=== PATIENT | male | born 1955 | race Caucasian/White ===

== ENCOUNTER → 2022-03-09 07:00 | Outpatient (CLI) | payer OTHER, SELFPAY ==
[2022-03-09 19:32] LABS: HIV 1 & 2 Ab/Ag 4th Gen Combo NEGATIVE (NEGATIVE)
== END ==
PROVIDERS: PCP Pediatrics; Referring Provider Pediatrics; Visit Provider Pediatrics
DX: A64 Unspecified sexually transmitted disease (principal)
CPT/HCPCS: 36415; 87389

== ENCOUNTER → 2022-04-26 07:11 | Outpatient (CLI) | payer OTHER, SELFPAY ==
--- NOTE | 2022-04-26 07:13 | DI.RAD.S_ITS ---
PROCEDURE: XR CHEST 2V INDICATIONS: left side chest pain TECHNIQUE: 2 views of the chest were acquired. COMPARISON: None. FINDINGS: Surgical changes and devices: None. Lungs and pleura: Lungs are clear. No pleural effusions or pneumothorax. Mediastinum: Mediastinal contours are normal. Heart size is normal. Bones and chest wall: No suspicious bony abnormalities. Soft tissues appear unremarkable. IMPRESSION: No acute cardiopulmonary findings. Dictated by: Gabby Coleman M.D. on 04/26/2022 at 8:34 Approved by: Gabby Coleman M.D. on 04/26/2022 at 8:36
[2022-04-26 08:36] LABS: Add Manual Diff / Slide Review NO; Basophils Absolute Auto 0 /uL (0-100); Basophils Percent Auto 0.5 % (0-2); Eosinophils Absolute Auto 100 /uL (0-450); Eosinophils Percent Auto 2.1 % (2-4); Hematocrit 45.6 % (41-53); Lymphocytes Absolute Auto 1700 /uL (1100-4500); Lymphocytes Percent Auto 32.1 % (25-40); Mean Corpuscular Hemoglobin 32.7 PG (26-34); Mean Corpuscular Volume 93.3 fL (80-100); Monocytes Absolute Auto 600 /uL (0-900); Monocytes Percent Auto 11.3 % (3-14); Neutrophils Absolute Auto 2900 /uL (1500-7000); Platelet Count 200 X10^3/uL (150-400); Red Blood Cell Count 4.89 X10^6/uL (4.5-5.9); Red Cell Distribution Width 12.5 % (11.6-14.8); White Blood Cell Count 5.4 X10^3/uL (4.5-11.0)
[2022-04-26 08:40] LABS: Ur Creatinine Normal (Normal); Ur Specific Gravity Normal (Normal); Urine pH Normal (Normal)
[2022-04-26 08:41] LABS: UR Morphine/Opiate cutoff 300 Negative (Negative); Urine Amphetamines Negative (Negative); Urine Barbiturates Negative (Negative); Urine Benzodiazepines Negative (Negative); Urine Cocaine Negative (Negative); Urine MDMA Negative (Negative); Urine Methadone Negative (Negative); Urine Methamphetamines Negative (Negative); Urine Oxycodone Negative (Negative); Urine Phencyclidine Negative (Negative); Urine Tetrahydrocannabinol Negative (Negative); Urine Tricyclic Antidepressant Negative (Negative)
[2022-04-26 09:23] LABS: Alanine Aminotransferase 25 IU/L (<50); Albumin 4.3 g/dL (3.5-5.0); Albumin Globulin Ratio 1.6 (1.0-2.8); Alkaline Phosphatase 54 U/L (38-126); Aspartate Aminotransferase 33 IU/L (17-59); BUN Creatinine Ratio 19.1 (6-22); Bilirubin Total 1.2 mg/dL (0.2-1.3); Blood Urea Nitrogen 17 mg/dL (9-20); Calcium 8.6 mg/dL (8.4-10.2); Carbon Dioxide 27 mmol/L (22-32); Chloride 104 mmol/L (98-107); Cholesterol 194 mg/dL (140-199); Estimated Glomerular Filt Rate > 60 mL/min (>60); Globulin 2.7 g/dL (1.7-4.1); Glucose 96 mg/dL (80-110); HDL Cholesterol 43 mg/dL (40-60); HEMOLYSIS < 15 (0-50); LDL Cholesterol Calculated 131 mg/dL (<100); Potassium 4.6 mmol/L (3.4-5.1); Sodium 139 mmol/L (137-145); Triglycerides 99 mg/dL (35-150)
[2022-04-26 09:52] LABS: TSH w/ Reflex to FT4 1.15 uIU/mL (0.47-4.68)
[2022-04-26 09:53] LABS: Prostate Specific Antigen Scrn 0.228 ng/mL (0.1-4.0)
[2022-04-26 10:01] LABS: Hep C Virus Ab w/Reflex Quant NEGATIVE s/c (NEGATIVE)
[2022-04-26 10:06] LABS: Appearance Urine UA CLEAR; Bilirubin Urine UA NEGATIVE (NEGATIVE); Color Urine UA YELLOW; Glucose Urine UA NEGATIVE (Negative); Ketones Urine UA NEGATIVE (NEGATIVE); Leukocyte Esterase Urine UA NEGATIVE (NEGATIVE); Nitrite Urine UA NEGATIVE (Negative); Occult Blood Urine UA TRACE-INTACT (Negative); Protein Urine UA NEGATIVE (Negative); Specific Gravity Urine UA <=1.005 (1.000-1.035); Urobilinogen Urine UA 0.2 E.U./dL (0.2)
[2022-04-26 10:07] LABS: Bacteria Urine Occasional (0-1); Culture Indicated Urine Cult Not Indicated; RBC Urine 0-1/HPF (0-5/HPF); WBC Urine 0-1/HPF (0-5/HPF)
[2022-04-27 13:54] LABS: Interpretation Negative (Negative)
== END ==
PROVIDERS: PCP Pediatrics; Referring Provider Pediatrics; Visit Provider Pediatrics
DX: Z02.83 Encounter for blood-alcohol and blood-drug test (principal); R07.9 Chest pain, unspecified; Z12.5 Encounter for screening for malignant neoplasm of prostate; E03.9 Hypothyroidism, unspecified; K21.9 Gastro-esophageal reflux disease without esophagitis; N40.0 Benign prostatic hyperplasia without lower urinary tract symptoms; R30.0 Dysuria; Z13.220 Encounter for screening for lipoid disorders; Z13.228 Encounter for screening for other metabolic disorders; Z76.89 Persons encountering health services in other specified circumstances
CPT/HCPCS: 36415; 71046; 80053; 80061; 80305; 81001; 83013; 84443; 85025; 86803; G0103

== ENCOUNTER → 2022-05-12 11:50 | Outpatient (CLI) | payer OTHER, SELFPAY ==
--- NOTE | 2022-05-12 11:52 | DI.RAD.S_ITS ---
PROCEDURE: XR KNEE LT 3V INDICATIONS: left knee pain TECHNIQUE: 3 views of the knee were acquired. COMPARISON: None. FINDINGS: Bones: No fractures or dislocations. Mild tricompartmental osteoarthritis is seen with joint space narrowing, subchondral sclerosis and small marginal osteophyte formation more prominent in patellofemoral compartment. No patellar subluxation. No suspicious bony lesions. Soft tissues: No significant joint effusion. No suspicious soft tissue calcifications. IMPRESSION: Mild tricompartmental osteoarthritis. No fracture or dislocation. No significant joint effusion. Dictated by: Lam Baer M.D. on 05/12/2022 at 14:16 Approved by: Lam Baer M.D. on 05/12/2022 at 14:21
--- NOTE | 2022-05-12 11:52 | DI.RAD.S_ITS ---
PROCEDURE: XR KNEE RT 3V INDICATIONS: right knee pain TECHNIQUE: 3 views of the knee were acquired. COMPARISON: None. FINDINGS: Bones: No fractures or dislocations. Mild tricompartmental osteoarthritis is seen with joint space narrowing and subchondral sclerosis. No suspicious bony lesions. Soft tissues: Small suprapatellar joint effusion is seen. No suspicious soft tissue calcifications. IMPRESSION: No right knee fracture or dislocation. Mild tricompartmental osteoarthritis and small joint effusion. Dictated by: Lam Baer M.D. on 05/12/2022 at 14:16 Approved by: Lam Baer M.D. on 05/12/2022 at 14:16
== END ==
PROVIDERS: PCP Family Medicine; Referring Provider Internal Medicine; Visit Provider Internal Medicine
DX: M17.0 Bilateral primary osteoarthritis of knee (principal); M25.461 Effusion, right knee
CPT/HCPCS: 73562

== ENCOUNTER 2022-06-30 20:50 | Emergency (ER) | payer OTHER, SELFPAY ==
[2022-06-30 20:57] VITALS: BP 137/70; PULSE 63; RESP 20; TEMP 37.3; O2SAT 98
--- NOTE | 2022-06-30 23:46 | DI.CT.S_ITS ---
PROCEDURE: CT ANGIO HEAD AND NECK INDICATIONS: right arm weakness now resolved, possible pinched nerve TECHNIQUE: Pre-contrast 4.5 mm thick sections acquired from the foramen magnum to the vertex. After the administration of intravenous contrast, 1 mm thick sections acquired from the aortic arch through the [place] of [place]. Post-contrast 4.5 mm thick sections then re-acquired from the foramen magnum to the vertex. 3-dimensional uvkaosj-jdwspyvrv-sxxfmxaame (MIP) and/or volume rendering reformats were acquired of the central intracranial vasculature and neck separately. For radiation dose reduction, the following was used: automated exposure control, adjustment of mA and/or kV according to patient size. COMPARISON: None. FINDINGS: Image quality: Excellent. BRAIN: CSF spaces: Basal cisterns are patent. No extra-axial fluid collections. Ventricles are normal in size and shape. Brain: No intracranial hemorrhage, mass, or mass effect. [place]-white matter interface appears preserved. There is a small oval region of interhemispheric enhancement anteriorly measuring approximately 0.6 cm as seen on series 15, image 20. Skull and face: Calvarium and facial bones appear intact, without suspicious lesions. Orbits appear normal. Sinuses: Sinuses and mastoids are clear. HEAD CT ANGIOGRAPHY: Anterior circulation: Intracranial internal carotid arteries are normal in size and appear patent bilaterally. There is mild atherosclerotic calcification along the cavernous segments of the internal carotid arteries. The paired anterior cerebral arteries appear patent bilaterally. There is a diminutive A1 segment of the left anterior cerebral artery compatible with an anatomic variant. The anterior communicating artery also appears patent. The middle cerebral arteries appear patent bilaterally. No high-grade stenosis, occlusion, or filling defects. There is an oval enhancing lesion measuring approximately 0.6 x 0.3 x 0.3 cm adjacent to the distal left anterior cerebral artery and the anterior aspect of the inferior sagittal sinus. The findings are suggestive of a small cerebral aneurysm or varix. Posterior circulation: Visualized portions of the vertebral arteries demonstrate normal caliber, and join to form a patent basilar artery. The posterior cerebral arteries appears patent bilaterally. No high-grade stenosis, occlusion, or filling defects. No cerebral aneurysms identified. NECK CT ANGIOGRAPHY: Carotid system: The great vessels demonstrate a conventional anatomy as they arise from the aortic arch. The origins of the common carotid arteries appear patent. The common carotid arteries demonstrate normal caliber and courses. The bifurcation regions are both widely patent. The internal carotid arteries demonstrate normal calibers and courses. Posterior circulation: The origins of the vertebral arteries both appear patent. The more superior extracranial portions of both vertebral arteries also demonstrate normal courses and calibers. They join to form a patent basilar artery. Soft tissues: Visualized neck soft tissues demonstrate no suspicious abnormalities. Bones: No suspicious bony lesions. Visualized cervical spine demonstrates straightening of the cervical lordosis. There is multilevel degenerative disc disease and facet joint arthropathy. IMPRESSION: 1. No definite acute intracranial abnormality. 2. No high-grade stenosis or occlusion of the central intracranial arteries. 3. No high-grade stenosis or occlusion of the head and neck arteries. 4. Small oval enhancing interhemispheric lesion along the frontal lobes may represent a small aneurysm of the distal anterior cerebral artery or a varix of the inferior sagittal sinus. Any quantitative measurements of stenosis were performed using NASCET criteria. Dictated by: Jewel Infante M.D. on 07/01/2022 at 1:33 Approved by: Jewel Infante M.D. on 07/01/2022 at 1:44
[2022-07-01 00:03] LABS: Add Manual Diff / Slide Review NO; Basophils Absolute Auto 0 /uL (0-100); Basophils Percent Auto 0.6 % (0-2); Eosinophils Absolute Auto 100 /uL (0-450); Eosinophils Percent Auto 2.2 % (2-4); Hematocrit 40.7 % (41-53); Hemoglobin 14.2 g/dL (13.5-17.5); Lymphocytes Absolute Auto 2100 /uL (1100-4500); Mean Corpuscular HGB Conc 34.8 % (30-36); Mean Corpuscular Volume 91.9 fL (80-100); Monocytes Absolute Auto 800 /uL (0-900); Monocytes Percent Auto 13.3 % (3-14); Neutrophils Absolute Auto 3000 /uL (1500-7000); Neutrophils Percent Auto 48.9 % (50-75); Platelet Count 176 X10^3/uL (150-400); Red Blood Cell Count 4.43 X10^6/uL (4.5-5.9); Red Cell Distribution Width 12.2 % (11.6-14.8); White Blood Cell Count 6.1 X10^3/uL (4.5-11.0)
[2022-07-01 00:16] LABS: Alanine Aminotransferase 28 IU/L (<50); Albumin 3.9 g/dL (3.5-5.0); Albumin Globulin Ratio 1.4 (1.0-2.8); Alkaline Phosphatase 54 U/L (38-126); Aspartate Aminotransferase 36 IU/L (17-59); BUN Creatinine Ratio 13.4 (6-22); Bilirubin Total 0.4 mg/dL (0.2-1.3); Blood Urea Nitrogen 15 mg/dL (9-20); Calcium 8.2 mg/dL (8.4-10.2); Carbon Dioxide 26 mmol/L (22-32); Chloride 104 mmol/L (98-107); Estimated Glomerular Filt Rate > 60 mL/min (>60); Globulin 2.7 g/dL (1.7-4.1); Glucose 106 mg/dL (80-110); HEMOLYSIS 23 (0-50); Sodium 140 mmol/L (137-145); Total Protein 6.6 g/dL (6.3-8.2)
--- NOTE | 2022-07-01 00:37 | ED_ITS ---
HPI - Neuro Symptoms/Deficit General Chief Complaint: Extremity Injury, Upper Stated Complaint: Shoulder tingling, Loss of control Time Seen by Provider: 06/30/22 21:23 History of Present Illness HPI Narrative: Patient is a 67-year-old healthy male history of hypothyroid hyperlipidemia p resenting today with sudden onset of right arm weakness. He actually has been having some right arm weakness ongoing for about 5 weeks. He says it is okay during the day however definitely has certain positions and definitely at night where he can not use his right arm to push himself up from a sitting or lying position he also can not rule over with out left arm helping his right arm. But it does get better throughout the day he is able to exercise do pushups in his daily living activities. Tonight he got up from a lying position he had sudden onset bilateral arm pain he went to brush his teeth when he dropped his electric toothbrush. He has no chest pain the symptoms lasted for a few minutes and then improved. He has no leg weakness he had no facial droop he had no vision changes he had no difficulty speaking. He was a former [employer] and has had multiple injuries but has no known neck problems. He previously injured his right shoulder in October or November but that has been healing and he has been doing well with that for a while now. On Anticoagulants: No Related Data Home Medications Medication Instructions Recorded Confirmed gabapentin 300 mg capsule 1,200 mg PO BEDTIME PRN insomnia 03/07/22 06/14/22 Previous Rx's Medication Instructions Recorded tadalafil 5 mg tablet (Cialis) 5 mg PO ONCE PRN sexual activity 04/13/22 #30 tabs levothyroxine 200 mcg tablet 200 mcg PO DAILY #90 tabs 04/17/22 pantoprazole 40 mg tablet,delayed 40 mg PO DAILY #60 tabs 05/12/22 release rosuvastatin 10 mg tablet 10 mg PO DAILY #90 tabs 05/12/22 Allergies Allergy/AdvReac Type Severity Reaction Status Date / Time No Known Drug Allergies Allergy Verified 06/14/22 09:19 Review of Systems Review of Systems Narrative: GENERAL: Denies chills, fatigue, malaise, fever, sweats, travel HEENT: Denies sinus pain, ear pain, sore throat, difficulty swallowing, neck pain RESPIRATORY: Denies dyspnea, cough, wheezing, hemoptysis, sputum. CARDIOVASCULAR: Denies chest pain, palpitations, orthopnea, edema GASTROINTESTINAL: Denies nausea, vomiting, abdominal pain, diarrhea, constipation, melena. : Denies dysuria, frequency, incontinence, hematuria, urinary retention, flank pain. MUSCULOSKELETAL: Denies weakness, joint pain, or bony pain SKIN: No rash, no erythema, no pruritus NEUROLOGIC: See HPI PSYCHIATRIC: No concerning psychosocial issues. 12 point review of systems is negative except for those stated above and HPI Hematologic/Lymphatic On Anticoagulants: No Patient History Medical History Allergic rhinitis Atypical squamoproliferative skin lesion Benign prostatic hyperplasia Chronic arthritis Chronic insomnia Erectile dysfunction GERD (gastroesophageal reflux disease) Hiatal hernia Hypothyroidism Mixed hyperlipidemia Physical exam, annual Right acoustic neuroma (~2019) Family History Father Parkinson's disease Social History Smoking Status: Never smoker alcohol intake: current (1-2 drinks / 5 days a week ) substance use type: former substance user and marijuana (Quit [employer] edibles ) Smoking Status: Never smoker alcohol intake frequency: holidays/special occasions only Substance Use Type: does not use Exam Initial Vital Signs Initial Vital Signs: Vital Signs Temperature 99.1 F 06/30/22 20:57 Pulse Rate 63 06/30/22 20:57 Respiratory Rate 20 06/30/22 20:57 Blood Pressure 137/70 06/30/22 20:57 Pulse Oximetry 98 06/30/22 20:57 Oxygen Delivery Method 06/30/22 20:57 GENERAL: Alert well-appearing 67-year-old male appears younger than stated age and in no acute distress. HEENT: Head atraumatic,EOMI, pupils reactive, face symmetric, moist mucous membranes CARDIOVASCULAR: Regular rate and rhythm without murmurs, rubs or gallops. RESPIRATORY: Breath sounds equal bilaterally, no wheezes rales or rhonchi. ABDOMEN: Soft, nontender. Normoactive bowel sounds all 4 quadrants. No guarding or rebound. EXTREMITIES: Normal range of motion, no clubbing or edema. Neurovascularly intact NEUROLOGICAL: Alert and oriented x4.Normal gait and speech. Cranial nerves II through XII grossly intact. Good uhzpts-cd-mypz, good lkdr-dw-ycut, strength equal bilaterally, no dysarthria or aphasia, sensation in tact to soft touch bilaterally, no visual changes, no facial droop SKIN: Warm, dry, no laceration, no petechiae, no rashes or lesions. Scores NIH Stroke Scale Level of Conciousness: Alert, keenly responsive Ask month/age: Answers both questions correctly. Open/close eyes, close hand: Performs both tasks correctly Best gaze horizontal: Normal Visual sun: No visual loss Facial palsy: Normal symetrical movement Left arm drift: No drift for full 10 sec Right arm drift: No drift for full 10 sec Left leg drift: No drift for full 5 sec Right leg drift: No drift for full 5 sec Limb ataxia: Absent Sensory on face/arms/legs: Normal, no sensory loss Best language: No aphasia, normal Dysarthria: Normal Extinction or inattention: No abnormality Total NIH Stroke scale score: 0 Course Orders Ordered: ED Orders 06/30/22 23:46 CT angio head and neck Stat EKG-12 Lead Stat 06/30/22 23:55 CBC Auto Diff [Complete Blood Count AUTO DIFF] Stat CMP [Comprehensive Metabolic Panel] Stat 07/01/22 EKG-12 Lead Routine Vital Signs Vital signs: Vital Signs - 8 hr 07/01/22 02:13 Pulse Rate 53 L Respiratory Rate 20 Blood Pressure 120/71 Pulse Oximetry 96 Oxygen Delivery Method Room Air MDM - Neuro Symptoms/Deficit Lab Data Result diagrams: 06/30/22 23:55 06/30/22 23:55 Labs: Lab Results 06/30/22 06/30/22 Range/Units 23:55 23:55 WBC 6.1 (4.5-11.0) X10^3/uL RBC 4.43 L (4.5-5.9) X10^6/uL Hgb 14.2 (13.5-17.5) g/dL Hct 40.7 L (41-53) % MCV 91.9 (80-100) fL MCH 32.0 (26-34) PG MCHC 34.8 (30-36) % RDW 12.2 (11.6-14.8) % Plt Count 176 (150-400) X10^3/uL Neut % (Auto) 48.9 L (50-75) % Lymph % (Auto) 35.0 (25-40) % [place] % (Auto) 13.3 (3-14) % Eos % (Auto) 2.2 (2-4) % Baso % (Auto) 0.6 (0-2) % Neut # (Auto) 3000 (8680-2405) /uL Lymph # (Auto) 2100 (1336-6185) /uL [place] # (Auto) 800 (0-900) /uL Eos # (Auto) 100 (0-450) /uL Baso # (Auto) 0 (0-100) /uL Sodium 140 (137-145) mmol/L Potassium 4.0 (3.4-5.1) mmol/L Chloride 104 (98-107) mmol/L Carbon Dioxide 26 (22-32) mmol/L BUN 15 (9-20) mg/dL Creatinine 1.12 (0.66-1.25) mg/dL Estimated GFR > 60 (>60) mL/min BUN/Creatinine Ratio 13.4 (6-22) Glucose 106 (80-110) mg/dL Calcium 8.2 L (8.4-10.2) mg/dL Total Bilirubin 0.4 (0.2-1.3) mg/dL AST 36 (17-59) IU/L ALT 28 (<50) IU/L Alkaline Phosphatase 54 (38-126) U/L Total Protein 6.6 (6.3-8.2) g/dL Albumin 3.9 (3.5-5.0) g/dL Globulin 2.7 (1.7-4.1) g/dL Albumin/Globulin Ratio 1.4 (1.0-2.8) Imaging Data CTA - brain/neck: Radiologist's Impression: CT Scan Report Signed Patient: Manuel Daigle MR#: [id number] : 1955 Acct:[id number] Age/Sex: 67 / M Date of Service: 06/30/22 Loc: ED Accession Number: [id number] ?? Procedure: CT angio head and neck Ordering Provider: Kim Nunn D.O. PROCEDURE:? CT ANGIO HEAD AND NECK ? INDICATIONS:? right arm weakness now resolved, possible pinched nerve ? TECHNIQUE:? Pre-contrast 4.5 mm thick sections acquired from the foramen magnum to the vertex.? After the administration of intravenous contrast, 1 mm thick sections acquired from the aortic arch through the [place] of [place].? Post-contrast 4.5 mm thick sections then re- acquired from the foramen magnum to the vertex.? 3-dimensional ihlsuqk-lnsaotztm-zyxfveruem (MIP) and/or volume rendering reformats were acquired of the central intracranial vasculature and neck separately. For radiation dose reduction, the following was used:? automated exposure control, adjustment of mA and/or kV according to patient size.? ? COMPARISON:? None. ? FINDINGS:? Image quality:? Excellent.? ? BRAIN:? CSF spaces:? Basal cisterns are patent.? No extra-axial fluid collections.? Ventricles are normal in size and shape.? ? Brain:? No intracranial hemorrhage, mass, or mass effect.? [place]-white matter interface appears preserved.? There is a small oval region of interhemispheric enhancement anteriorly measuring approximately 0.6 cm as seen on series 15, image 20. ? Skull and face:? Calvarium and facial bones appear intact, without suspicious lesions.? Orbits appear normal.? ? Sinuses:? Sinuses and mastoids are clear.? ? HEAD CT ANGIOGRAPHY:? Anterior circulation:? Intracranial internal carotid arteries are normal in size and appear patent bilaterally.? There is mild atherosclerotic calcification along the cavernous segments of the internal carotid arteries.? The paired anterior cerebral arteries appear patent bilaterally.? There is a diminutive A1 segment of the left anterior cerebral artery compatible with an anatomic variant.? The anterior communicating artery also appears patent. The middle cerebral arteries appear patent bila terally.? No high-grade stenosis, occlusion, or filling defects.? There is an oval enhancing lesion measuring approximately 0.6 x 0.3 x 0.3 cm adjacent to the distal left anterior cerebral artery and the anterior aspect of the inferior sagittal sinus.? The findings are suggestive of a small cerebral aneurysm or varix. ? Posterior circulation:? Visualized portions of the vertebral arteries demonstr ate normal caliber, and join to form a patent basilar artery.? The posterior cerebral arteries appears patent bilaterally.? No high-grade stenosis, occlusion, or filling defects.? No cerebral aneurysms identified. ? NECK CT ANGIOGRAPHY:? Carotid system:? The great vessels demonstrate a conventional anatomy as they arise from the aortic arch.? The origins of the common carotid arteries appear patent.? The common carotid arteries demonstrate normal caliber and courses.? The bifurcation regions are both widely patent.? The internal carotid arteries demonstrate normal calibers and courses.? ? Posterior circulation:? The origins of the vertebral arteries both appear patent.? The more superior extracranial portions of both vertebral arteries also demonstrate normal courses and calibers.? They join to form a patent basilar artery.? ? Soft tissues:? Visualized neck soft tissues demonstrate no suspicious abnormalities.? ? Bones:? No suspicious bony lesions.? Visualized cervical spine demonstrates straightening of the cervical lordosis.? There is multilevel degenerative disc disease and facet joint arthropathy.? ? ? IMPRESSION:? ? 1. No definite acute intracranial abnormality. ? 2. No high-grade stenosis or occlusion of the central intracranial arteries. ? 3. No high-grade stenosis or occlusion of the head and neck arteries. ? 4. Small oval enhancing interhemispheric lesion along the frontal lobes may represent a small aneurysm of the distal anterior cerebral artery or a varix of the inferior sagittal sinus.? ? Any quantitative measurements of stenosis were performed using NASCET criteria.? ? ? Dictated by: Jewel Infante M.D. on 07/01/2022 at 1:33 ? ? ECG Data Interpretation: Normal sinus rhythm rate 55. Will to 60 QRS 84 QTC further before no ST changes no T-wave inversions no priors to compare MDM Narrative Medical decision making narrative: Patient has had ongoing right arm weakness off and on for 5 weeks. It seems to be worse with position it is worse at night it is better during the day at today had sudden onset lateral pain. I suspect more of a cervical radiculopathy symptoms resolved other considerations are TIA. Head CT is negative. There does show some degenerative changes in the bones. But no obvious stenosis. He does not have any ongoing weakness. I recommend outpatient MRI pain management as needed however he really is in a lot of pain. He is taking gabapentin to help him sleep at night but it does not seem to be helping. Discharge Plan Departure Patient Disposition: Home Clinical Impression: Cervical radiculopathy Instructions: DI for Cervical Radiculopathy Activity Restrictions/Additional Instructions: *You have been diagnosed with cervical radiculopathy *What to do: At this time blood work today is reassuring. It does appear you have some arthritis in her neck which may be causing some of her symptoms. I recommend an outpatient MRI which can be arranged with your primary care provider. No evidence of stroke on her CT today *Continue to take medications as directed *Follow up with your primary care provider in 2-3 days or call [phone] *Return to ER if you should have increasing weakness numbness tingling or any new, worsening or concerning symptoms Prescriptions: No Action levothyroxine 200 mcg tablet 200 mcg PO DAILY Qty: 90 0RF Rx Instructions: LABS NEED TO BE ACCOMPLISHED BEFORE END OF RX + CALL TO SET UP FUTURE APPT WITH WEEKS OR NEW PCP. THANK YOU 04/17/22. gabapentin 300 mg capsule 1,200 mg PO BEDTIME PRN (Reason: insomnia) tadalafil [Cialis] 5 mg tablet 5 mg PO ONCE PRN (Reason: sexual activity) Qty: 30 0RF Rx Instructions: 1-2 tabs 30 minutes to 1 hour before activity (trial 1 tab of this script first ) pantoprazole 40 mg tablet,delayed release (DR/EC) 40 mg PO DAILY Qty: 60 5RF rosuvastatin 10 mg tablet 10 mg PO DAILY Qty: 90 3RF Referrals: Sanjana Lemus DO [Primary Care Provider] - Visit Report Forms: Patient Portal/API
[2022-07-01 02:13] VITALS: BP 120/71; PULSE 53; RESP 20; O2SAT 96
== END 2022-07-01 02:14 | disposition home or self-care (01) ==
PROVIDERS: Emergency Provider Emergency Medicine; PCP Family Medicine
DX: M54.12 Radiculopathy, cervical region (principal)
CPT/HCPCS: 36415; 70496; 70498; 80053; 85025; 93005; 99283; 99284; Q9967

== ENCOUNTER → 2022-07-11 15:20 | Outpatient (CLI) | payer OTHER, SELFPAY ==
--- NOTE | 2022-07-11 15:21 | DI.RAD.S_ITS ---
PROCEDURE: XR SHOULDER RT MIN 2V INDICATIONS: right shoulder pain TECHNIQUE: 3 views of the shoulder were acquired. COMPARISON: None. FINDINGS: Bones: No fractures or dislocations. No suspicious bony lesions. Visualized ribs appear intact. Soft tissues: 1.2 centimeter ossification projects over the subcoracoid joint space may represent intra-articular loose body. IMPRESSION: No fracture. No acute osseous lesion. If symptoms and/or clinical suspicion for pathology persists, further assessment with repeat radiographs (7-10 days) or advanced imaging (e.g. CT, MRI or bone scan) should be considered. Possible 1.2 centimeter ossified intra-articular loose body. Dictated by: Garima Yates MD, PhD on 07/11/2022 at 15:39 Approved by: Garima Yates MD, PhD on 07/11/2022 at 15:41
== END ==
PROVIDERS: PCP Family Medicine; Referring Provider Family Medicine; Visit Provider Family Medicine
DX: M25.511 Pain in right shoulder (principal)
CPT/HCPCS: 73030

== ENCOUNTER → 2022-07-21 15:08 | Outpatient (CLI) | payer OTHER, SELFPAY ==
--- NOTE | 2022-07-21 15:09 | DI.MRI.S_ITS ---
PROCEDURE: MR SHOULDER RT WO CON INDICATIONS: right shoulder pain TECHNIQUE: Noncontrast oblique coronal T2 fast spin echo with fat saturation, oblique sagittal T1 spin echo and T2 fast spin echo with fat saturation, axial T1 spin echo and T2 fast spin echo with fat saturation through the shoulder. COMPARISON: [facility], CR, XR SHOULDER RT MIN 2V, 07/11/2022, 16:24. FINDINGS: Image quality: There are motion artifacts. Rotator cuff: There is high-grade partial-thickness tear of the supraspinatus tendon from the musculotendinous junction to footprint. Possible full-thickness pinhole perforation of the distal supraspinatus tendon (series 8, image 10). There is hirckqzq-fk-slxlui infraspinatus and subscapularis tendinosis. Sagittal images demonstrate no muscle atrophy. Bones and bursae: No bone marrow contusions or fractures. There is moderate acromioclavicular and severe glenohumeral joint degeneration. The acromion demonstrates conventional anatomy, without an os acromiale. There is subcoracoid bursal fluid consistent with bursitis. There is a 0.9 x 1.3 cm oval-shaped intra-articular body within the subcoracoid bursa (series 6, image 13 and series 8, image 22). Capsule and soft tissues: There is degenerative labral fraying, most pronounced in the superior labrum. Mild tendinosis of the long head of the biceps tendon, which demonstrates normal location. There is fluid along the biceps tendon sheath and 3 joint bodies measuring 4-5 mm (series 8 image 12 and 14). The rotator interval appears normal, without fibrosis. The coracohumeral ligament is normal in thickness. IMPRESSION: 1. High-grade partial-thickness tear of the supraspinatus tendon from the musculotendinous junction to footprint. There may be full-thickness pinhole perforation of the distal supraspinatus tendon. No tendon retraction or muscle atrophy. 2. Hgfovkly-yj-dpnjvg tendinosis of the infraspinatus and subscapularis tendons. 3. Moderate acromioclavicular and severe glenohumeral joint degeneration. 4. Degenerative labral fraying. 5. Subcoracoid bursitis. 6. There are joint bodies within the subcoracoid bursa and within the long head of the biceps tendon sheath. Dictated by: Tana Vuong M.D. on 07/21/2022 at 16:25 Approved by: Tana Vuong M.D. on 07/23/2022 at 10:35
== END ==
PROVIDERS: PCP Family Medicine; Referring Provider Family Medicine; Visit Provider Family Medicine
DX: M75.111 Incomplete rotator cuff tear or rupture of right shoulder, not specified as traumatic (principal); M19.011 Primary osteoarthritis, right shoulder; M75.51 Bursitis of right shoulder; M25.511 Pain in right shoulder
CPT/HCPCS: 73221

== ENCOUNTER → 2022-12-12 11:24 | Outpatient (CLI) | payer OTHER, SELFPAY ==
[2022-12-12 13:00] LABS: Hematocrit 44.1 % (41-53); Hemoglobin 15.5 g/dL (13.5-17.5); Mean Corpuscular Hemoglobin 32.1 PG (26-34); Mean Corpuscular Volume 91.5 fL (80-100); Platelet Count 217 X10^3/uL (150-400); Red Blood Cell Count 4.82 X10^6/uL (4.5-5.9); Red Cell Distribution Width 12.5 % (11.6-14.8); White Blood Cell Count 7.6 X10^3/uL (4.5-11.0)
[2022-12-12 13:31] LABS: HEMOLYSIS < 15 (0-50); Iron 111 ug/dL (49-181)
[2022-12-12 13:42] LABS: Alanine Aminotransferase 58 IU/L (<50); Albumin 4.3 g/dL (3.5-5.0); Albumin Globulin Ratio 1.8 (1.0-2.8); Alkaline Phosphatase 65 U/L (38-126); Aspartate Aminotransferase 55 IU/L (17-59); BUN Creatinine Ratio 16.1 (6-22); Bilirubin Total 0.7 mg/dL (0.2-1.3); Blood Urea Nitrogen 15 mg/dL (9-20); Calcium 8.6 mg/dL (8.4-10.2); Carbon Dioxide 24 mmol/L (22-32); Chloride 105 mmol/L (98-107); Estimated Glomerular Filt Rate > 60 mL/min (>60); Globulin 2.4 g/dL (1.7-4.1); Glucose 131 mg/dL (80-110); HEMOLYSIS < 15 (0-50); Percent Iron Saturation 37 % (20-50); Potassium 4.4 mmol/L (3.4-5.1); Sodium 140 mmol/L (137-145); Total Iron Binding Capacity 301 ug/dL (261-462); Total Protein 6.7 g/dL (6.3-8.2); Transferrin 216 mg/dL (206-381)
[2022-12-12 14:02] LABS: TSH w/ Reflex to FT4 0.77 uIU/mL (0.47-4.68)
[2022-12-12 14:09] LABS: Ferritin 274 ng/mL (18-464)
== END ==
LOC: LAB 11:25 → RESP 11:28
PROVIDERS: PCP Family Medicine; Referring Provider Family Medicine; Visit Provider Family Medicine
DX: R53.83 Other fatigue (principal); D64.9 Anemia, unspecified; E55.9 Vitamin D deficiency, unspecified; E78.2 Mixed hyperlipidemia; E89.0 Postprocedural hypothyroidism
CPT/HCPCS: 36415; 80053; 82306; 82728; 83540; 83550; 84443; 85027; 93005

== ENCOUNTER → 2023-01-05 | Outpatient (CLI) | payer OTHER, SELFPAY ==
--- NOTE | 2023-01-26 05:30 | DI.NM.S_ITS ---
DATE OF SERVICE: PROCEDURE: Exercise stress test. INDICATIONS: Coronary artery calcification. CARDIAC STRESS: Patient underwent exercise stress test under the supervision of an attending staff. The patient walked on Mom[place] protocol for 12 minutes and 10 seconds, achieved maximum heart rate of 168, which was 111% of target heart rate. Resting blood pressure 120/80 mmHg. Peak blood pressure 222/100 mmHg. KADI -62%. Baseline rhythm was sinus. During stress, no convincing ischemic changes seen. Rare PACs and PVCs without any complex arrhythmias. No chest pain or anginal symptoms. CONCLUSION: 1. Exercise stress test is negative for inducible ischemia. 2. Excellent exercise tolerance. KADI -62%. Mildly hypertensive blood pressure response with peak blood pressure 222/100 mmHg. Resting blood pressure 120/80. Prior to discharge, blood pressure came down to 162/80 mmHg. No complex arrhythmias. No anginal symptoms. Overall, low-risk exercise stress test. Abelardo Daigle Jr - ANA/malcolm/hernan doc#: [id number]/job#: [id number] dd: 01/05/2023 17:09:00 dt: 01/06/2023 00:18:00 DICTATING /COPIES TO: Rickey Wiseman MD COPIES MNE: PIPO;
== END ==
PROVIDERS: PCP Family Medicine; Referring Provider Family Medicine; Visit Provider Family Medicine
DX: I25.84 Coronary atherosclerosis due to calcified coronary lesion (principal); I25.10 Atherosclerotic heart disease of native coronary artery without angina pectoris; R53.83 Other fatigue
CPT/HCPCS: 93017

== ENCOUNTER → 2023-02-19 07:14 | Outpatient (CLI) | payer OTHER, SELFPAY ==
[2023-02-19 08:19] LABS: HEMOLYSIS < 15 (0-50)
[2023-02-19 08:24] LABS: Alanine Aminotransferase 32 IU/L (<50); Albumin 4.1 g/dL (3.5-5.0); Albumin Globulin Ratio 1.6 (1.0-2.8); Alkaline Phosphatase 53 U/L (38-126); Aspartate Aminotransferase 36 IU/L (17-59); BUN Creatinine Ratio 20.2 (6-22); Bilirubin Total 1.1 mg/dL (0.2-1.3); Blood Urea Nitrogen 17 mg/dL (9-20); Calcium 8.4 mg/dL (8.4-10.2); Carbon Dioxide 28 mmol/L (22-32); Chloride 104 mmol/L (98-107); Cholesterol 136 mg/dL (140-199); Estimated Glomerular Filt Rate > 60 mL/min (>60); Globulin 2.5 g/dL (1.7-4.1); Glucose 99 mg/dL (80-110); HDL Cholesterol 51 mg/dL (40-60); LDL Cholesterol Calculated 64 mg/dL (<100); Potassium 4.2 mmol/L (3.4-5.1); Sodium 138 mmol/L (137-145); Total Protein 6.6 g/dL (6.3-8.2); Triglycerides 106 mg/dL (35-150)
[2023-02-19 08:30] LABS: High Sensitivity CRP - Cardiac < 0.3 mg/L (1.0-3.0)
[2023-02-24 09:09] LABS: Percent Free Testosterone 2.99 % (1.50-4.20); Testosterone Free 12.27 ng/dL (5.00-21.00); Testosterone Total 410.4 ng/dL (264.0-916.0)
== END ==
PROVIDERS: PCP Family Medicine; Referring Provider Family Medicine; Visit Provider Family Medicine
DX: I25.10 Atherosclerotic heart disease of native coronary artery without angina pectoris (principal); D33.3 Benign neoplasm of cranial nerves; I25.84 Coronary atherosclerosis due to calcified coronary lesion; E78.2 Mixed hyperlipidemia; R53.83 Other fatigue; R74.01 Elevation of levels of liver transaminase levels
CPT/HCPCS: 36415; 80053; 80061; 84402; 84403; 86140